=== PATIENT | male | born 1995 | race Caucasian/White ===

== ENCOUNTER 2020-12-02 08:05 | Emergency (ER) | payer OTHER, SELFPAY ==
[2020-12-02] MEDS ORDERED: Lidocaine 1% 20 ML MDV ONE (08:58)
[2020-12-02] MEDS ORDERED: Triple Antibiotic Oint 1 GM Packet ONE (09:56)
== END 2020-12-02 10:05 | disposition home or self-care (01) ==
LOC: MADERS 08:05
DX: S61.411A Laceration without foreign body of right hand, initial encounter (principal); W11.XXXA Fall on and from ladder, initial encounter; Y92.89 Other specified places as the place of occurrence of the external cause; Y99.0 Civilian activity done for income or pay
CPT/HCPCS: 12002